=== PATIENT | male | born 1955 | race Asian ===

== ENCOUNTER 2016-09-29 05:16 | Inpatient (IN) | payer MEDICARE, OTHER ==
[~2016-09-29] VITALS: Ht 165.1 cm; Wt 80.9 kg
[~2016-09-29 05:16] MED LIST: ACET-2635 PO; ASPI325T PO; COLC0.6T69 PO; HUM10VIA6 SQ; INSNOV SQ; METO200T37 PO; NIAC500C3 PO; NIFE-4 PO; OMEP20 PO; PRED10 GT; ROSU40 PO; VICOT
[2016-09-29 05:41] LABS: GLUCOSE,POINT OF CARE 139 MG/DL (70-110)
[2016-09-29 06:11] LABS: BASOPHILS % (AUTO) 0.5 % (0.0-2.0); EOSINOPHILS % (AUTO) 7.1 % (1.0-6.0); HEMATOCRIT 33.1 % (41-53); HEMOGLOBIN 10.8 g/dL (13.5-17.5); LYMPHOCYTES % (AUTO) 17.1 % (22.0-44.0); MEAN CORPUSCULAR HEMOGLOBIN 30.8 pg (26.0-34.0); MEAN CORPUSCULAR HGB CONC 32.7 G/dL (31.0-37.0); MEAN CORPUSCULAR VOLUME 94 fL (80-100); MONOCYTES # (AUTO) 0.8 K/uL (0.1-1.0); MONOCYTES % (AUTO) 13.8 % (2.0-9.0); NEUTROPHILS # (AUTO) 3.6 K/uL (1.8-7.7); NEUTROPHILS % (AUTO) 61.5 % (40.0-70.0); PLATELET COUNT (AUTO) 149 K/uL (150-450); RED CELL DISTRIBUTION WIDTH 13.7 % (11.5-14.5); WHITE BLOOD COUNT (AUTO) 5.8 K/uL (4.5-11.0)
[2016-09-29] MEDS ORDERED: MECLIZINE HCL 25 MG TABLET PO ONE (06:15)
[2016-09-29] MEDS ORDERED: ONDANSETRON HCL 4 MG/2 ML VIAL IVP ONE (06:15)
[2016-09-29 06:24] LABS: CREATININE 9.55 mg/dL (0.60-1.30); POTASSIUM 4.9 mmol/L (3.5-5.1)
[2016-09-29 06:30] LABS: ALBUMIN 3.5 g/dL (3.4-5.0); BILIRUBIN,TOTAL 0.2 mg/dL (0.1-1.0); TOTAL PROTEIN, SERUM 7.6 g/dL (6.4-8.2)
[2016-09-29] MEDS ORDERED: METOCLOPRAMIDE HCL 5 MG/ML 2 ML VIAL IVP ONE (06:30)
[2016-09-29] MEDS ORDERED: FEBU80TA PO (07:06)
[2016-09-29] MEDS ORDERED: FOLI1TAB35 PO (07:06)
[2016-09-29] MEDS ORDERED: METO100T5 PO (07:06)
[2016-09-29] MEDS ORDERED: ATOR40TA71 PO (07:06)
[2016-09-29] MEDS ORDERED: OMEP20TA86 PO (07:06)
[2016-09-29] MEDS ORDERED: PRED10TA3 PO (07:06)
[2016-09-29] MEDS ORDERED: [UNRECOGNIZED DRUG - CODE] PO (07:06)
[2016-09-29] MEDS ORDERED: SUCR500T PO (07:06)
[2016-09-29] MEDS ORDERED: AMLO-511 PO (07:06)
[2016-09-29] MEDS ORDERED: SEVE0.8P PO (07:06)
[2016-09-29] MEDS ORDERED: OMEG-112 PO (07:06)
[2016-09-29] MEDS ORDERED: SEVE400 PO (07:06)
[2016-09-29] MEDS ORDERED: GABA600T PO (07:06)
[2016-09-29] MEDS ORDERED: FOLI400 PO (07:06)
[2016-09-29] MEDS ORDERED: CINA60TA PO (07:06)
[2016-09-29] MEDS ORDERED: ACETAMINOPHEN 325 MG TABLET PO PRN ×2 (08:00→08:15)
[2016-09-29] MEDS ORDERED: ZOLPIDEM TARTRATE 5 MG TABLET PO PRN ×2 (08:00→08:15)
[2016-09-29] MEDS ORDERED: HEPARIN SODIUM,PORCINE 5,000 UNITS/ML VIAL SQ SCH (08:00)
[2016-09-29] MEDS ORDERED: ONDANSETRON HCL 4 MG/2 ML VIAL IVP PRN ×2 (08:00→08:15)
[2016-09-29] MEDS ORDERED: BISACODYL 10 MG RECTAL RECTAL SUPPOSITORY PR PRN ×2 (08:00→08:15)
[2016-09-29] MEDS ORDERED: MAGNESIUM HYDROXIDE SUSPENSION 30 ML UDCUP PO PRN ×2 (08:00→08:15)
[2016-09-29] MEDS ORDERED: OxyCODONE HCL/ACETAMINOPHEN 5-325 MG TABLET PO PRN ×2 (08:00→08:15)
[2016-09-29 08:22] VITALS: BP 158/80
[2016-09-29] MEDS ORDERED: PANTOPRAZOLE SODIUM 40 MG DR TABLET PO SCH (09:00)
[2016-09-29] MEDS: PANTOPRAZOLE SODIUM 40 MG DR TABLET PO SCH (09:57)
[2016-09-29] MEDS ORDERED: MANNITOL 25%-12.5 GM/50 ML VIAL IVP PRN (10:45)
[2016-09-29] MEDS ORDERED: LIDOCAINE HCL/PF 1% 2 ML VIAL ID PRN (10:45)
[2016-09-29 11:00] VITALS: BP 186/76
[2016-09-29 16:24] VITALS: BP 159/76
[2016-09-29] MEDS: VITAMIN B COMP/VIT C/FOLIC ACID CAPSULE PO SCH (16:28)
[2016-09-29] MEDS: HEPARIN SODIUM,PORCINE 5,000 UNITS/ML VIAL SQ SCH ×2 (16:28→21:07)
[2016-09-29] MEDS: METOPROLOL TARTRATE 25 MG TABLET PO SCH ×2 (16:28→21:07)
[2016-09-29] MEDS ORDERED: LIDOCAINE HCL/PF 1% 2 ML VIAL INJ ONE (17:25)
[2016-09-29] MEDS ORDERED: CINACALCET HCL 30 MG TABLET PO SCH (18:00)
[2016-09-29] MEDS: SEVELAMER CARBONATE 800 MG TABLET PO SCH (18:06)
[2016-09-29 19:17] VITALS: BP 157/77
[2016-09-29 23:14] VITALS: BP 113/71
[2016-09-30 04:12] VITALS: BP 144/76
[2016-09-30 06:46] LABS: BASOPHILS % (AUTO) 0.8 % (0.0-2.0); EOSINOPHILS % (AUTO) 7.1 % (1.0-6.0); HEMATOCRIT 32.9 % (41-53); HEMOGLOBIN 10.9 g/dL (13.5-17.5); LYMPHOCYTES % (AUTO) 17.6 % (22.0-44.0); MEAN CORPUSCULAR HEMOGLOBIN 31.2 pg (26.0-34.0); MEAN CORPUSCULAR VOLUME 94 fL (80-100); MONOCYTES # (AUTO) 0.7 K/uL (0.1-1.0); MONOCYTES % (AUTO) 11.7 % (2.0-9.0); NEUTROPHILS # (AUTO) 3.7 K/uL (1.8-7.7); NEUTROPHILS % (AUTO) 62.8 % (40.0-70.0); PLATELET COUNT (AUTO) 151 K/uL (150-450); RED BLOOD CELL COUNT(AUTO) 3.48 MIL/uL (4.50-5.90); RED CELL DISTRIBUTION WIDTH 13.9 % (11.5-14.5); WHITE BLOOD COUNT (AUTO) 5.9 K/uL (4.5-11.0)
[2016-09-30 07:11] LABS: ALBUMIN 3.2 g/dL (3.4-5.0); BILIRUBIN,TOTAL 0.4 mg/dL (0.1-1.0); CALCIUM, TOTAL 8.1 mg/dL (8.8-10.5); CREATININE 6.86 mg/dL (0.60-1.30); POTASSIUM 4.3 mmol/L (3.5-5.1); TOTAL PROTEIN, SERUM 7.1 g/dL (6.4-8.2)
[2016-09-30 07:43] VITALS: BP 154/74
[2016-09-30] MEDS: PANTOPRAZOLE SODIUM 40 MG DR TABLET PO SCH (08:26)
[2016-09-30] MEDS: SEVELAMER CARBONATE 800 MG TABLET PO SCH (08:27)
[2016-09-30] MEDS: HEPARIN SODIUM,PORCINE 5,000 UNITS/ML VIAL SQ SCH (08:27)
[2016-09-30] MEDS: METOPROLOL TARTRATE 25 MG TABLET PO SCH (08:27)
[2016-09-30] MEDS: VITAMIN B COMP/VIT C/FOLIC ACID CAPSULE PO SCH (08:27)
== END 2016-09-30 12:05 | disposition home or self-care (01) | DRG 149 ==
LOC: EMS 05:18 → 5N 07:56
PROVIDERS: ADMIT Hospitalist; ATTEND Hospitalist
PROC: 5A1D00Z (ICD-10-PCS; principal; 2016-09-29)
DX: R42 Dizziness and giddiness (principal); N18.6 End stage renal disease; I13.11 Hypertensive heart and chronic kidney disease without heart failure, with stage 5 chronic kidney disease, or end stage renal disease; I69.351 Hemiplegia and hemiparesis following cerebral infarction affecting right dominant side; N25.81 Secondary hyperparathyroidism of renal origin; E11.22 Type 2 diabetes mellitus with diabetic chronic kidney disease; E78.5 Hyperlipidemia, unspecified; D63.8 Anemia in other chronic diseases classified elsewhere; I25.10 Atherosclerotic heart disease of native coronary artery without angina pectoris; K21.9 Gastro-esophageal reflux disease without esophagitis; G47.33 Obstructive sleep apnea (adult) (pediatric); E11.42 Type 2 diabetes mellitus with diabetic polyneuropathy; D69.6 Thrombocytopenia, unspecified; H40.9 Unspecified glaucoma; R26.81 Unsteadiness on feet; E79.0 Hyperuricemia without signs of inflammatory arthritis and tophaceous disease; G56.00 Carpal tunnel syndrome, unspecified upper limb; R00.1 Bradycardia, unspecified; Z99.2 Dependence on renal dialysis; Z88.8 Allergy status to other drugs, medicaments and biological substances; Z79.899 Other long term (current) drug therapy; Z79.4 Long term (current) use of insulin; Z95.1 Presence of aortocoronary bypass graft; Z98.42 Cataract extraction status, left eye; Z98.890 Other specified postprocedural states; Z82.49 Family history of ischemic heart disease and other diseases of the circulatory system
CPT/HCPCS: 70450; 76700; 82962; 87081; 87340; 90935; 93005; 94660; 96374; 99285; J1644; J2405; J2765; J3490

== ENCOUNTER 2021-10-30 06:29 | Inpatient (IN) | payer MEDICARE, OTHER ==
[~2021-10-30] VITALS: Ht 167.6 cm; Wt 83.3 kg
[2021-10-30] VITALS (8 sets, daily range): BP systolic 65–138; BP diastolic 30–85
[~2021-10-30 06:29] MED LIST changes: -ACET-2635 PO; +AMLO-257 PO; -ASPI325T PO; +ATOR40TA71 PO; +CINA60TA PO; -COLC0.6T69 PO; +FEBU80TA PO; +FOLI0.4T91 PO; +FOLI1TAB35 PO; +GABA600T PO; -HUM10VIA6 SQ; -INSNOV SQ; +METO100T14 PO; -METO200T37 PO; -NIAC500C3 PO; -NIFE-4 PO; +OMEG-112 PO; -OMEP20 PO; +OMEP20TA25 PO; -PRED10 GT; +PRED10TA3 PO; -ROSU40 PO; +SEVE0.8P PO; +SEVE400 PO; +SUCR500T PO; -VICOT; +[UNRECOGNIZED DRUG - CODE] PO
[2021-10-30] MEDS ORDERED: PROPOFOL 1000 MG/ISO-OSM 100 ML IV PRN (07:00)
[2021-10-30 07:01] LABS: ABG BASE EXCESS -8.7 mmol/L (-2.0-3.0); ABG CARBOXYHEMOGLOBIN 0.5 % (0.0-1.5); ABG HCO3 17.4 mmol/L (22.0-26.0); ABG METHEMOGLOBIN 0.1 % (0.0-1.5); ABG OXYGEN CONTENT 16.1 mL/dL (15.0-23.0); ABG OXYHEMOGLOBIN 98.4 % (94.0-100.0); ABG PCO2 52 mmHg (35-45); ABG TOTAL HEMOGLOBIN 11.3 G/dL (12.0-18.0); PO2, ARTERIAL BG 184.7 mmHg (79.0-87.0); SOURCE, BLOOD GAS ARTERIAL; TEMPERATURE, FAHRENHEIT, BG 96.1 FAHREN (96.0-98.6)
[2021-10-30 07:02] LABS: ABG A-A DIFF O2 480.3 mmHg (10-20.0); ABG PH 7.194 (7.35-7.450); O2 DEVICE,BLOOD GAS VENTILATOR (ROOM AIR); PEEP,BG 5 cm H2O; SITE, BLOOD GAS LFT RADIAL; VT, ABG 430 ml
[2021-10-30 07:12] LABS: BASOPHILS % (AUTO) 1.4 % (0.0-2.0); EOSINOPHILS % (AUTO) 3.8 % (1.0-6.0); HEMATOCRIT 34.1 % (41-53); HEMOGLOBIN 10.9 g/dL (13.5-17.5); LYMPHOCYTES # (AUTO) 4.4 K/uL (1.0-4.8); LYMPHOCYTES % (AUTO) 42.9 % (22.0-44.0); MEAN CORPUSCULAR HGB CONC 31.9 G/dL (31.0-37.0); MEAN CORPUSCULAR VOLUME 94 fL (80-100); MONOCYTES # (AUTO) 0.7 K/uL (0.1-1.0); MONOCYTES % (AUTO) 7.1 % (2.0-9.0); NEUTROPHILS # (AUTO) 4.6 K/uL (1.8-7.7); NEUTROPHILS % (AUTO) 44.8 % (40.0-70.0); PLATELET COUNT (AUTO) 172 K/uL (150-450); RED BLOOD CELL COUNT(AUTO) 3.62 MIL/uL (4.50-5.90); RED CELL DISTRIBUTION WIDTH 18.4 % (11.5-14.5)
[2021-10-30 07:21] LABS: CALCIUM, TOTAL 8.6 mg/dL (8.8-10.5); CREATININE 7.22 mg/dL (0.60-1.30); POTASSIUM 4.3 mmol/L (3.5-5.1)
[2021-10-30 07:31] LABS: ALBUMIN 3.2 g/dL (3.4-5.0); BILIRUBIN,TOTAL 0.5 mg/dL (0.1-1.0); MAGNESIUM 2.5 mg/dL (1.80-2.40)
[2021-10-30 08:18] LABS: INR 1.2 (0.9-1.1); PROTHROMBIN TIME 12.7 SEC (9.4-11.6)
[2021-10-30 08:19] LABS: COVID AG,FIA SOURCE NASAL SWAB
[2021-10-30] MEDS ORDERED: ACETAMINOPHEN 325 MG TABLET PO PRN (08:45)
[2021-10-30] MEDS ORDERED: BISACODYL 10 MG RECTAL RECTAL SUPPOSITORY PR PRN (08:45)
[2021-10-30] MEDS ORDERED: ATORVASTATIN CALCIUM 20 MG TABLET NG SCH (09:00)
[2021-10-30] MEDS: HEPARIN SODIUM,PORCINE 5,000 UNITS/ML VIAL SQ SCH ×2 (09:00→20:51)
[2021-10-30 10:36] LABS: ABG BASE EXCESS 2.1 mmol/L (-2.0-3.0); ABG CARBOXYHEMOGLOBIN 0.3 % (0.0-1.5); ABG HCO3 25.9 mmol/L (22.0-26.0); ABG METHEMOGLOBIN 0.3 % (0.0-1.5); ABG OXYGEN CONTENT 15.3 mL/dL (15.0-23.0); ABG OXYGEN SATURATION 97.4 % (95.0-98.0); ABG OXYHEMOGLOBIN 96.8 % (94.0-100.0); ABG PCO2 49 mmHg (35-45); ABG PH 7.368 (7.35-7.450); ABG TOTAL HEMOGLOBIN 11.1 G/dL (12.0-18.0); PO2, ARTERIAL BG 98.9 mmHg (79.0-87.0); SOURCE, BLOOD GAS ARTERIAL
[2021-10-30 10:37] LABS: O2 DEVICE,BLOOD GAS VENTILATOR (ROOM AIR); PEEP,BG 5 cm H2O; SITE, BLOOD GAS LFT RADIAL; VT, ABG 430 ml
[2021-10-30] MEDS: PANTOPRAZOLE SODIUM 40 MG/VIAL IVP SCH (12:00)
[2021-10-30] MEDS: ASPIRIN 81 MG CHEWABLE TABLET NG SCH (12:01)
[2021-10-30] MEDS: DOCUSATE SODIUM 100 MG CAPSULE PO SCH ×2 (12:01→20:51)
[2021-10-30] MEDS ORDERED: PNEUMOCOCCAL VACCINE POLYVALENT 0.5 ML VIAL [PPSV23] IM. ONE (13:30)
[2021-10-30] MEDS ORDERED: INFLUENZA VIRUS VACCINE QVS 2021-22 (6MO+)/PF 60 MCG/0.5 ML SYRINGE IM. ONE (13:30)
[2021-10-30] MEDS ORDERED: IOHEXOL 350 MG/ML 100 ML VIAL ONE (13:43)
[2021-10-30] MEDS ORDERED: SODIUM CHLORIDE 0.9% 100 ML ONE (13:43)
[2021-10-30] MEDS: CefTRIAXone SODIUM 2 GM in DEXTROSE 5%-WATER 50 ML IV SCH (17:02)
[2021-10-30] MEDS: DOXYCYCLINE HYCLATE 100 MG in DEXTROSE 5%-WATER 100 ML IV SCH (17:34)
[2021-10-30] MEDS: ATORVASTATIN CALCIUM 20 MG TABLET NG SCH (20:51)
[2021-10-30] MEDS: NOREPINEPHRINE 4 MG/D5%-WATER 250 ML IV PRN (21:39)
[2021-10-30] MEDS ORDERED: ATROPINE SULFATE 0.1 MG/ML 10 ML SYRINGE IVP ONE (23:00)
[2021-10-31] VITALS: BP 120/85
[2021-10-31] MEDS: PROPOFOL 1000 MG/ISO-OSM 100 ML IV PRN ×4 (00:31→23:26)
[2021-10-31 03:00] LABS: ABG BASE EXCESS -3.2 mmol/L (-2.0-3.0); ABG CARBOXYHEMOGLOBIN 0.5 % (0.0-1.5); ABG HCO3 21.8 mmol/L (22.0-26.0); ABG METHEMOGLOBIN 0.3 % (0.0-1.5); ABG OXYGEN CONTENT 15.8 mL/dL (15.0-23.0); ABG OXYGEN SATURATION 95.3 % (95.0-98.0); ABG OXYHEMOGLOBIN 94.5 % (94.0-100.0); ABG PCO2 44 mmHg (35-45); ABG PH 7.332 (7.35-7.450); ABG TOTAL HEMOGLOBIN 11.8 G/dL (12.0-18.0); PO2, ARTERIAL BG 87.5 mmHg (79.0-87.0); SOURCE, BLOOD GAS ARTERIAL; TEMPERATURE, FAHRENHEIT, BG 98.9 FAHREN (96.0-98.6)
[2021-10-31 03:01] LABS: O2 DEVICE,BLOOD GAS VENTILATOR (ROOM AIR); SITE, BLOOD GAS LFT RADIAL; VT, ABG 430 ml
[2021-10-31 03:02] LABS: PEEP,BG 5 cm H2O; SPONTANEOUS VT, BG 583 ml
[2021-10-31 04:00] VITALS: BP 122/82
[2021-10-31] MEDS: DOXYCYCLINE HYCLATE 100 MG in DEXTROSE 5%-WATER 100 ML IV SCH ×2 (06:02→17:50)
[2021-10-31 06:04] LABS: SITE, BLOOD GAS LFT RADIAL; SOURCE, BLOOD GAS ART
[2021-10-31 06:04] LABS: BASOPHILS % (AUTO) 0.7 % (0.0-2.0); EOSINOPHILS % (AUTO) 0.2 % (1.0-6.0); HEMATOCRIT 34.2 % (41-53); MEAN CORPUSCULAR HEMOGLOBIN 29.4 pg (26.0-34.0); MEAN CORPUSCULAR HGB CONC 32.2 G/dL (31.0-37.0); MEAN CORPUSCULAR VOLUME 91 fL (80-100); MONOCYTES # (AUTO) 1.5 K/uL (0.1-1.0); MONOCYTES % (AUTO) 8.8 % (2.0-9.0); NEUTROPHILS # (AUTO) 14.8 K/uL (1.8-7.7); NEUTROPHILS % (AUTO) 84.3 % (40.0-70.0); PLATELET COUNT (AUTO) 244 K/uL (150-450); RED BLOOD CELL COUNT(AUTO) 3.75 MIL/uL (4.50-5.90); RED CELL DISTRIBUTION WIDTH 18.4 % (11.5-14.5)
[2021-10-31 06:05] LABS: ABG HCO3 21.5 mmol/L (22.0-26.0); ABG PCO2 38 mmHg (35-45); ABG PH 7.366 (7.35-7.450); ABG TOTAL HEMOGLOBIN 11.4 G/dL (12.0-18.0)
[2021-10-31 06:06] LABS: ABG A-A DIFF O2 155.1 mmHg (10-20.0); ABG CARBOXYHEMOGLOBIN 0.6 % (0.0-1.5); ABG METHEMOGLOBIN 0.3 % (0.0-1.5); ABG OXYGEN CONTENT 15.3 mL/dL (15.0-23.0)
[2021-10-31 06:07] LABS: O2 DEVICE,BLOOD GAS VENTILATOR (ROOM AIR); PEEP,BG 5 cm H2O; SPONTANEOUS VT, BG 483 ml; VT, ABG 430 ml
[2021-10-31 06:10] LABS: TEMPERATURE, FAHRENHEIT, BG 90.9 FAHREN (96.0-98.6)
[2021-10-31 06:19] LABS: CALCIUM, TOTAL 8.2 mg/dL (8.8-10.5); CREATININE 7.18 mg/dL (0.60-1.30); MAGNESIUM 2.2 mg/dL (1.80-2.40); PHOSPHORUS 6.1 mg/dL (2.5-4.9); POTASSIUM 4.9 mmol/L (3.5-5.1)
[2021-10-31 08:00] VITALS: BP 123/76
[2021-10-31] MEDS: PANTOPRAZOLE SODIUM 40 MG/VIAL IVP SCH (08:17)
[2021-10-31] MEDS: ASPIRIN 81 MG CHEWABLE TABLET NG SCH (08:17)
[2021-10-31] MEDS: DOCUSATE SODIUM 100 MG CAPSULE PO SCH ×2 (08:18→20:12)
[2021-10-31] MEDS: HEPARIN SODIUM,PORCINE 5,000 UNITS/ML VIAL SQ SCH ×2 (08:18→20:12)
[2021-10-31 08:26] LABS: ABG CARBOXYHEMOGLOBIN 0.6 % (0.0-1.5); ABG HCO3 23.7 mmol/L (22.0-26.0); ABG METHEMOGLOBIN 0.3 % (0.0-1.5); ABG OXYGEN CONTENT 15.9 mL/dL (15.0-23.0); ABG OXYGEN SATURATION 96.7 % (95.0-98.0); ABG OXYHEMOGLOBIN 95.8 % (94.0-100.0); ABG PCO2 36 mmHg (35-45); ABG PH 7.431 (7.35-7.450); ABG TOTAL HEMOGLOBIN 11.7 G/dL (12.0-18.0); PO2, ARTERIAL BG 76.6 mmHg (79.0-87.0); SOURCE, BLOOD GAS ARTERIAL
[2021-10-31 08:31] LABS: O2 DEVICE,BLOOD GAS VENTILATOR (ROOM AIR); SITE, BLOOD GAS LFT BRACHIAL
[2021-10-31 08:33] LABS: PEEP,BG 5 cm H2O; SPONTANEOUS VT, BG 479 ml; VT, ABG 430 ml
[2021-10-31 12:00] VITALS: BP 111/53
[2021-10-31] MEDS: NOREPINEPHRINE 4 MG/D5%-WATER 250 ML IV PRN (14:08)
[2021-10-31 16:00] VITALS: BP 103/57
[2021-10-31] MEDS: CefTRIAXone SODIUM 2 GM in DEXTROSE 5%-WATER 50 ML IV SCH (17:05)
[2021-10-31] MEDS: ATORVASTATIN CALCIUM 20 MG TABLET NG SCH (20:12)
[2021-11-01] VITALS: BP 108/66
[2021-11-01 04:00] VITALS: BP 144/72
[2021-11-01] MEDS: PROPOFOL 1000 MG/ISO-OSM 100 ML IV PRN ×2 (04:33→10:40)
[2021-11-01] MEDS: DOXYCYCLINE HYCLATE 100 MG in DEXTROSE 5%-WATER 100 ML IV SCH (05:27)
[2021-11-01 08:00] VITALS: BP 113/74
[2021-11-01] MEDS: NOREPINEPHRINE 4 MG/D5%-WATER 250 ML IV PRN (08:31)
[2021-11-01 08:40] LABS: BASOPHILS % (AUTO) 2.4 % (0.0-2.0); EOSINOPHILS % (AUTO) 2.1 % (1.0-6.0); HEMATOCRIT 30.4 % (41-53); LYMPHOCYTES # (AUTO) 0.9 K/uL (1.0-4.8); LYMPHOCYTES % (AUTO) 8.6 % (22.0-44.0); MEAN CORPUSCULAR HEMOGLOBIN 29.3 pg (26.0-34.0); MEAN CORPUSCULAR VOLUME 89 fL (80-100); MONOCYTES % (AUTO) 9.8 % (2.0-9.0); NEUTROPHILS % (AUTO) 77.1 % (40.0-70.0); PLATELET COUNT (AUTO) 206 K/uL (150-450); RED BLOOD CELL COUNT(AUTO) 3.42 MIL/uL (4.50-5.90); RED CELL DISTRIBUTION WIDTH 18.5 % (11.5-14.5)
[2021-11-01 08:48] LABS: CREATININE 8.14 mg/dL (0.60-1.30); POTASSIUM 4.1 mmol/L (3.5-5.1)
[2021-11-01] MEDS: PANTOPRAZOLE SODIUM 40 MG/VIAL IVP SCH (10:14)
[2021-11-01] MEDS: HEPARIN SODIUM,PORCINE 5,000 UNITS/ML VIAL SQ SCH (10:14)
[2021-11-01] MEDS: DOCUSATE SODIUM 100 MG CAPSULE PO SCH (10:14)
[2021-11-01] MEDS: ASPIRIN 81 MG CHEWABLE TABLET NG SCH (10:14)
[2021-11-01 12:00] VITALS: BP 92/57
[2021-11-01] MEDS ORDERED: CALCIUM CHLORIDE 100 MG/ML 10 ML SYRINGE IVP ONE (17:02)
[2021-11-01] MEDS ORDERED: EPINEPHrine 1:10,000 [1 MG/10 ML] SYRINGE IVP ONE (17:02)
[2021-11-01] MEDS ORDERED: SODIUM BICARBONATE [ADULT] 8.4% 50 MEQ/50 ML SYRINGE IVP ONE (17:02)
[2021-11-01] MEDS ORDERED: 0.9% SODIUM CHLORIDE 1,000 ML BAG IV ONE (17:02)
== END 2021-11-01 15:45 | disposition short-term general hospital (02) | DRG 208 ==
LOC: EMS 06:30 → ICU 09:10
PROVIDERS: ADMIT Internal Medicine; ATTEND Internal Medicine
PROC: 5A1945Z Respiratory Ventilation, 24-96 Consecutive Hours (ICD-10-PCS; principal; 2021-10-30)
PROC: 0BH17EZ Insertion of Endotracheal Airway into Trachea, Via Natural or Artificial Opening (ICD-10-PCS; 2021-10-30)
PROC: 5A12012 Performance of Cardiac Output, Single, Manual (ICD-10-PCS; 2021-10-30)
PROC: 02HV33Z Insertion of Infusion Device into Superior Vena Cava, Percutaneous Approach (ICD-10-PCS; 2021-10-30)
PROC: B548ZZA Ultrasonography of Superior Vena Cava, Guidance (ICD-10-PCS; 2021-10-30)
DX: J96.01 Acute respiratory failure with hypoxia (principal); I46.9 Cardiac arrest, cause unspecified; N18.6 End stage renal disease; J18.9 Pneumonia, unspecified organism; I13.2 Hypertensive heart and chronic kidney disease with heart failure and with stage 5 chronic kidney disease, or end stage renal disease; E87.2 Acidosis; J91.8 Pleural effusion in other conditions classified elsewhere; Z99.11 Dependence on respirator [ventilator] status; J98.11 Atelectasis; I50.40 Unspecified combined systolic (congestive) and diastolic (congestive) heart failure; I25.5 Ischemic cardiomyopathy; I25.10 Atherosclerotic heart disease of native coronary artery without angina pectoris; E11.22 Type 2 diabetes mellitus with diabetic chronic kidney disease; Z20.822 Contact with and (suspected) exposure to COVID-19; E66.01 Morbid (severe) obesity due to excess calories; E78.5 Hyperlipidemia, unspecified; I48.91 Unspecified atrial fibrillation; Z99.2 Dependence on renal dialysis; Z95.1 Presence of aortocoronary bypass graft; Z83.3 Family history of diabetes mellitus; Z82.49 Family history of ischemic heart disease and other diseases of the circulatory system; Z79.899 Other long term (current) drug therapy; Z86.73 Personal history of transient ischemic attack (TIA), and cerebral infarction without residual deficits; Z88.8 Allergy status to other drugs, medicaments and biological substances; Z68.29 Body mass index [BMI] 29.0-29.9, adult; R13.10 Dysphagia, unspecified
CPT/HCPCS: 31500; 36556; 36600; 70450; 71045; 71275; 74177; 80048; 80053; 82805; 83735; 83880; 84100; 84484; 85025; 85610; 85730; 87040; 87081; 87340; 93005; 93306; 94002; 94003; 99291; C9113; G0378; J0171; J0461; J0696; J1644; J2704; J3490; J7030; J7050; J7060; Q9967; 36415-L1; 36415-TC